=== PATIENT | female | born 1925 | race Caucasian/White ===

== ENCOUNTER 2016-09-11 00:26 | Emergency (ER) | payer MEDICARE, BC ==
--- NOTE | 2016-09-11 00:49 | ED ---
General Adult HPI - General Chief complaint: Abdominal Pain Stated complaint: Abd Pain Time Seen by Provider: 09/11/16 00:39 Source: EMS, RN notes reviewed Mode of arrival: EMS Limitations: no limitations - History of Present Illness Initial comments: Patient 89-year-old female who presents emergency room today by EMS, the chief complaint of right-sided abdominal pain. Patient does admit that it started earlier today after eating home from being go. She states that it got worse called EMS EMS to give her fentanyl. She states no pain at this time. Denies any complaints. Denies any other associated symptoms. When patient takes deep breath during physical exam she had some pain to the right side of the lower ribs or upper abdominal pain. Comfortable at rest. Patient denies any recent fever, chills, shortness of breath, chest pain, back pain, nausea or vomiting, numbness or tingling, dysuria or hematuria, constipation or diarrhea, headaches or visual changes, or any other complaints. - Related Data Home Medications Medication Instructions Recorded Confirmed Acetaminophen with Codeine 1 tab PO BID 04/01/15 04/01/15 [Tylenol w/codeine #3] Previous Rx's Medication Instructions Recorded Atorvastatin [Lipitor] 5 mg PO DAILY #30 tab 09/03/14 Lisinopril [Zestril] 2.5 mg PO BID #60 tab 09/03/14 Metoprolol Tartrate [Lopressor] 25 mg PO BID #60 tab 09/03/14 Levofloxacin [Levaquin] 500 mg PO DAILY 7 Days 09/11/16 Allergies Allergy/AdvReac Type Severity Reaction Status Date / Time Penicillins Allergy Rash/Hives Verified 04/01/15 18:32 Review of Systems ROS Statement: Those systems with pertinent positive or pertinent negative responses have been documented in the HPI. ROS Other: All systems not noted in ROS Statement are negative. Past Medical History Past Medical History: Chest Pain / Angina, Hyperlipidemia, Hypertension Additional Past Medical History / Comment(s): back pain History of Any Multi-Drug Resistant Organisms: None Reported Past Surgical History: Appendectomy Past Psychological History: No Psychological Hx Reported Smoking Status: Former smoker Past Alcohol Use History: Occasional Past Drug Use History: None Reported - Past Family History Mother Family Medical History: Congestive Heart Failure (CHF) Additional Family Medical History / Comment(s): Yuli Fever Father Additional Family Medical History / Comment(s): Father was gassed during WWII, affect internal organs but lived until he was 80 years old General Exam - General Exam Comments Initial Comments: General: The patient is awake and alert, in no distress, and does not appear acutely ill. Eye: Pupils are equal, round and reactive to light, extra-ocular movements are intact. No nystagmus. There is normal conjunctiva bilaterally. No signs of icterus. Ears, nose, mouth and throat: There are moist mucous membranes and no oral lesions. Neck: The neck is supple, there is no tenderness or JVD. Cardiovascular: There is a regular rate and rhythm. No murmur, rub or gallop is appreciated. Respiratory: Lungs are clear to auscultation, respirations are non-labored, breath sounds are equal. No wheezes, stridor, rales, or rhonchi. Gastrointestinal: Soft, non-distended, non-tender abdomen without masses or organomegaly noted. There is no rebound or guarding present. No CVA tenderness. Bowel sounds are unremarkable. Musculoskeletal: Normal ROM, no tenderness. Strength 5/5. Sensation intact. Pulses equal bilaterally 2+. Neurological: A&O x 3. CN II-XII intact, There are no obvious motor or sensory deficits. Coordination appears grossly intact. Speech is normal. Skin: Skin is warm and dry and no rashes or lesions are noted. Psychiatric: Cooperative, appropriate mood & affect, normal judgment. Limitations: no limitations Course Vital Signs 09/11/16 00:27 Temperature 97.0 F L Pulse Rate 91 Respiratory 18 Rate Blood Pressure 115/59 O2 Sat by Pulse 96 Oximetry Medical Decision Making - Medical Decision Making Case discussed in detail with attending physician Dr. Erickson. Patient's CT shows no evidence of PE. Does show small infiltrate in the right middle lobe. There is evidence for cardiomegaly. Borderline prominent mediastinal nodes, with emphysema. Patient's labs reviewed. Elevated d-dimer was the reason for CT with her pleuritic pain. No evidence for PE. Patient will be started on antibiotics of Levaquin. Given first dose here in emergency room discharged home. Advised follow-up the family doctor over the next 2 days. Advised used Tylenol for pain. Advised return for any other concerns. Her daughter at bedside state understanding and are in agreement - Lab Data Result diagrams: 09/11/16 00:54 09/11/16 00:54 Lab Results 09/11/16 09/11/16 09/11/16 Range/Units 00:54 00:54 00:54 WBC 7.6 (3.8-10.6) k/uL RBC 4.35 (3.80-5.40) m/uL Hgb 12.7 (11.4-16.0) gm/dL Hct 38.8 (34.0-46.0) % MCV 89.0 (80.0-100.0) fL MCH 29.3 (25.0-35.0) pg MCHC 32.9 (31.0-37.0) g/dL RDW 13.8 (11.5-15.5) % Plt Count 210 (150-450) k/uL Neutrophils % 77 % Lymphocytes % 14 % Monocytes % 5 % Eosinophils % 2 % Basophils % 1 % Neutrophils # 5.9 (1.3-7.7) k/uL Lymphocytes # 1.1 (1.0-4.8) k/uL Monocytes # 0.3 (0-1.0) k/uL Eosinophils # 0.2 (0-0.7) k/uL Basophils # 0.0 (0-0.2) k/uL PT (9.0-12.0) sec INR (<1.1) APTT (22.0-30.0) sec D-Dimer (<0.60) mg/L FEU Sodium 138 (137-145) mmol/L Potassium 4.3 (3.5-5.1) mmol/L Chloride 103 (98-107) mmol/L Carbon Dioxide 26 (22-30) mmol/L Anion Gap 9 mmol/L BUN 17 (7-17) mg/dL Creatinine 0.80 (0.52-1.04) mg/dL Est GFR (MDRD) Af Amer >60 (>60 ml/min/1.73 sqM) Est GFR (MDRD) Non-Af >60 (>60 ml/min/1.73 sqM) Glucose 96 (74-99) mg/dL Calcium 9.5 (8.4-10.2) mg/dL Magnesium 2.0 (1.6-2.3) mg/dL Total Bilirubin 1.1 (0.2-1.3) mg/dL AST 17 (14-36) U/L ALT 26 (9-52) U/L Alkaline Phosphatase 64 (38-126) U/L Total Creatine Kinase 56 (30-135) U/L CK-MB (CK-2) 1.5 (0.0-2.4) ng/mL CK-MB (CK-2) Rel Index 2.7 Troponin I 0.014 (0.000-0.034) ng/mL Total Protein 6.7 (6.3-8.2) g/dL Albumin 3.8 (3.5-5.0) g/dL Lipase 107 (23-300) U/L 09/11/16 09/11/16 Range/Units 00:54 00:54 WBC (3.8-10.6) k/uL RBC (3.80-5.40) m/uL Hgb (11.4-16.0) gm/dL Hct (34.0-46.0) % MCV (80.0-100.0) fL MCH (25.0-35.0) pg MCHC (31.0-37.0) g/dL RDW (11.5-15.5) % Plt Count (150-450) k/uL Neutrophils % % Lymphocytes % % Monocytes % % Eosinophils % % Basophils % % Neutrophils # (1.3-7.7) k/uL Lymphocytes # (1.0-4.8) k/uL Monocytes # (0-1.0) k/uL Eosinophils # (0-0.7) k/uL Basophils # (0-0.2) k/uL PT 10.7 (9.0-12.0) sec INR 1.1 (<1.1) APTT 27.0 (22.0-30.0) sec D-Dimer 0.91 H (<0.60) mg/L FEU Sodium (137-145) mmol/L Potassium (3.5-5.1) mmol/L Chloride (98-107) mmol/L Carbon Dioxide (22-30) mmol/L Anion Gap mmol/L BUN (7-17) mg/dL Creatinine (0.52-1.04) mg/dL Est GFR (MDRD) Af Amer (>60 ml/min/1.73 sqM) Est GFR (MDRD) Non-Af (>60 ml/min/1.73 sqM) Glucose (74-99) mg/dL Calcium (8.4-10.2) mg/dL Magnesium (1.6-2.3) mg/dL Total Bilirubin (0.2-1.3) mg/dL AST (14-36) U/L ALT (9-52) U/L Alkaline Phosphatase (38-126) U/L Total Creatine Kinase (30-135) U/L CK-MB (CK-2) (0.0-2.4) ng/mL CK-MB (CK-2) Rel Index Troponin I (0.000-0.034) ng/mL Total Protein (6.3-8.2) g/dL Albumin (3.5-5.0) g/dL Lipase (23-300) U/L Disposition Clinical Impression: CAP (community acquired pneumonia) Disposition: HOME SELF-CARE Condition: Good Instructions: Community Acquired Pneumonia (ED) Additional Instructions: Please use medication as discussed. Please follow-up with family doctor in the next 2 days of symptoms have not improved. Please return to emergency room if the symptoms increase or worsen or for any other concerns. Prescriptions: Levofloxacin [Levaquin] 500 mg PO DAILY 7 Days Time of Disposition: 02:55
[2016-09-11 01:04] LABS: Basophils % (A) 1 %; CH 28.7; CHCM 32.3; Eosinophils # (A) 0.2 k/uL (0-0.7); Eosinophils % (A) 2 %; HCT 38.8 % (34.0-46.0); HDW 2.41; HGB 12.7 gm/dL (11.4-16.0); Luc # (Auto) 0.11; Luc % (Auto) 1; Lymphocytes # (A) 1.1 k/uL (1.0-4.8); Lymphocytes % (A) 14 %; MCH 29.3 pg (25.0-35.0); MCHC 32.9 g/dL (31.0-37.0); Monocytes # (A) 0.3 k/uL (0-1.0); Monocytes % (A) 5 %; Neutrophils # (A) 5.9 k/uL (1.3-7.7); Neutrophils % (A) 77 %; RBC 4.35 m/uL (3.80-5.40); RDW 13.8 % (11.5-15.5); WBC 7.6 k/uL (3.8-10.6); WBC (Perox) 7.98
[2016-09-11 01:19] LABS: INR 1.1 (<1.1); Prothrombin Time 10.7 sec (9.0-12.0)
[2016-09-11 01:23] LABS: Carbon Dioxide 26 mmol/L (22-30); Chloride 103 mmol/L (98-107); Glucose 96 mg/dL (74-99); Potassium 4.3 mmol/L (3.5-5.1); Sodium 138 mmol/L (137-145)
--- NOTE | 2016-09-11 01:23 | XR ---
EXAM: XR Chest, 2 Views. CLINICAL HISTORY: Reason: Chest Pain TECHNIQUE: Frontal and lateral views of the chest. COMPARISON: 04/01/15 two view chest. FINDINGS: Lungs: As on the prior exam, the pulmonary vascular markings appear to be mildly prominent throughout, suggesting a component of pulmonary vascular congestion. There may even be faint Jeronimo B-lines at the right lung base, versus peripheral scarring. There is no superimposed infiltrate or pleural effusion. Pleural spaces: See above. Heart: The cardiomediastinal silhouette is stable including cardiomegaly and aortic calcification. Mediastinum: See above. Bones: The bones are osteopenic with mild dextroscoliosis and multilevel degenerative changes again present. No acute fracture. IMPRESSION: In the acute setting, findings suggest the presence of mild pulmonary vascular congestion. No superimposed infiltrate or effusion seen.
[2016-09-11 01:24] LABS: ALT 26 U/L (9-52); AST 17 U/L (14-36); Alkaline Phosphatase 64 U/L (38-126); Anion Gap 9 mmol/L; Blood Urea Nitrogen 17 mg/dL (7-17); Calcium 9.5 mg/dL (8.4-10.2); Non-African American GFR(MDRD) >60 (>60 ml/min/1.73 sqM); Total Bilirubin 1.1 mg/dL (0.2-1.3); Total Protein 6.7 g/dL (6.3-8.2)
[2016-09-11 01:37] LABS: Creatine Kinase MB 1.5 ng/mL (0.0-2.4); Troponin I 0.014 ng/mL (0.000-0.034)
[2016-09-11] MEDS ORDERED: RX INFO: IV CONTRAST WAS GIVEN 1 EACH MISC MISCELLANE PRN (02:00)
--- NOTE | 2016-09-11 02:44 | CT ---
EXAM: CT Angiography Chest With Intravenous Contrast. CLINICAL HISTORY: Reason: Pleuritic pain TECHNIQUE: Axial computed tomographic angiography images of the chest with intravenous contrast using pulmonary embolism protocol. CTDI is 75.40 mGy and DLP is 235.50 mGy-cm MIP reconstructed images were created and reviewed. COMPARISON: Earlier chest radiographs of the same evening. FINDINGS: Artifacts: Note some mild motion related artifact. Pulmonary arteries: Unremarkable. No pulmonary embolism. Aorta: Evaluation of the aorta is limited as it is not yet opacified, with note made of atherosclerotic calcification and no evidence of aneurysm. Lungs: There is bilateral centrilobular emphysema with upper lobe predominance. Small infiltrate is present within the right middle lobe lateral segment anteriorly at the right base. Elsewhere, there is slight prominence of the interlobular septae, more apparent at the lung bases. Pleural spaces: Unremarkable. No significant effusion. No pneumothorax. Heart: There is cardiomegaly, with reflux of contrast into the suprahepatic IVC and hepatic veins suggesting a component of impaired right-sided function. Coronary artery calcifications are present. No significant pericardial effusion. Bones: Mild rightward curvature of the thoracic spine with multilevel degenerative changes present. No acute fracture. Lymph nodes: There are several borderline prominent mediastinal nodes, the largest is a subcarinal node measuring approximately 11-12 mm in short axis diameter. IMPRESSION: 1. No evidence of pulmonary embolism. 2. Small infiltrate in the right middle lobe. 3. Additional findings, including cardiomegaly, borderline prominent mediastinal nodes, and emphysema, as above.
[2016-09-11] MEDS ORDERED: LEVOFLOXACIN 500 MG TAB PO STA (02:55)
[2016-09-11 03:20] VITALS: BP 119/68; PULSE 66; RESP 14; TEMP 98
== END 2016-09-11 03:00 | disposition home or self-care (01) ==
LOC: EC 00:26
DX: J18.9 Pneumonia, unspecified organism (principal); R79.1 Abnormal coagulation profile; Z79.899 Other long term (current) drug therapy; Z87.891 Personal history of nicotine dependence; Z88.0 Allergy status to penicillin
CPT/HCPCS: 36415; 93005; 85379; 80053; 82550; 82553; 83690; 83735; 84484; 85025; 85610; 85730; 71020; 71275; 99285; Q9967